=== PATIENT | female | born 1980 | race Caucasian/White ===

== ENCOUNTER 2016-12-20 19:16 | Emergency (ER) | payer MEDICAID ==
[~2016-12-20] VITALS: Ht 152.4 cm; Wt 137.9 kg
[~2016-12-20 19:16] MED LIST: PREN1TAB86
[2016-12-20 19:36] VITALS: BP 152/93
--- NOTE | 2016-12-20 20:21 | NUR ---
PT TAKEN TO [facility]
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
--- NOTE | 2016-12-20 20:28 | NUR ---
Dr. Edouard evaluating patient
[2016-12-20] MEDS ORDERED: FAMOTIDINE 20 MG/2 ML VIAL IVP ONE (20:35)
[2016-12-20] MEDS ORDERED: methylPREDNISolone SS 125 MG/2 ML VIAL IVP ONE (20:35)
[2016-12-20] MEDS ORDERED: diphenhydrAMINE 50 MG/ML VIAL IVP ONE (20:35)
--- NOTE | 2016-12-20 20:54 | NUR ---
PT MOVED TO BED 3
[2016-12-20 22:37] VITALS: BP 122/64
--- NOTE | 2016-12-20 22:37 | NUR ---
Patient discharged with v/s stable. Written and verbal after care instructions given and explained. Patient alert, oriented and verbalized understanding of instructions. Ambulatory with steady gait. All questions addressed prior to discharge. ID band removed. Patient advised to follow up with PMD IN 1-2 DAYS OR RETURN TO ER IF CONDITION WORSENS. Rx of PEPCID, EPIPEN AND ZYRTEC given. Patient educated on indication of medication including possible reaction and side effects. Opportunity to ask questions provided and answered.
== END 2016-12-20 22:37 | disposition home or self-care (01) ==
LOC: MED 19:16
DX: T78.40XA Allergy, unspecified, initial encounter (principal); X58.XXXA Exposure to other specified factors, initial encounter; R03.0 Elevated blood-pressure reading, without diagnosis of hypertension
CPT/HCPCS: 96372; 96374; 96375; 99284; J0171; J1200; J2930; J3490